=== PATIENT | female | born 1970 | race Caucasian/White ===

== ENCOUNTER 2017-01-10 08:04 | Emergency (ER) | payer OTHER ==
[~2017-01-10] VITALS: Ht 152.4 cm; Wt 104.3 kg
[~2017-01-10 08:04] MED LIST: 'PARAFON FORTE500 M1 PO; BACTRIM DS 8001 TA1 PO; CIPRO500 MG PO; CIPROFLOXACIN500 MG PO; ELIMITE 5%60 GM T; FENOFIBRATE MI134 MG PO; FENOFIBRATE160 MG PO; FLEXERIL10 MG PO; HYDROCODONE BIT1 T11 PO; INVOKAMET1 TAB PO; LISINOPRIL10 MG PO; LORATADINE D 101 T24 PO; LORATADINE D PO; METFORMIN500 MG PO; NAPROSYN500 MG PO; NAPROXEN500 MG PO; PERCOCET 325 MG1 TA6 PO; PREDNICOT20 MG PO; PYRIDIUM200 MG PO; ROBITUSSIN DM 105 ML PO; SEPTRA DS 800 M1 TAB PO; SIMVASTATIN PO; TOBREX OPHTH S2.5 ML OPH; TUSS DM PO; ZITHROMAX Z PA250 MG PO
[2017-01-10 08:12] VITALS: BP 153/79
[2017-01-10] MEDS ORDERED: FISH OIL CONC1000 M1 PO (08:32)
[2017-01-10] MEDS ORDERED: PREDNISONE50 MG PO (09:35)
[2017-01-10] MEDS ORDERED: VENTOLIN H0.09 MG/AC INH (09:36)
== END 2017-01-10 09:12 | disposition home or self-care (01) ==
LOC: ED 08:04
DX: J40 Bronchitis, not specified as acute or chronic (principal); I10 Essential (primary) hypertension

== ENCOUNTER 2017-09-20 09:04 | Emergency (ER) | payer OTHER ==
[~2017-09-20] VITALS: Ht 154.9 cm; Wt 106.1 kg
[~2017-09-20 09:04] MED LIST changes: +FISH OIL CONC1000 M1 PO; +PREDNISONE50 MG PO; +VENTOLIN H0.09 MG/AC INH
[2017-09-20 09:27] VITALS: BP 142/78
[2017-09-20] MEDS ORDERED: ROBITUSSIN DM 105 ML PO (09:35)
[2017-09-20] MEDS ORDERED: FLONASE ALLERG9.9 ML NAS (09:35)
[2017-09-20] MEDS ORDERED: CLARITIN10 MG PO (09:35)
[2017-09-20] MEDS ORDERED: PREDNISONE10 MG PO (09:35)
== END 2017-09-20 10:04 | disposition home or self-care (01) ==
LOC: ED 09:04
DX: J20.9 Acute bronchitis, unspecified (principal); I10 Essential (primary) hypertension; Z98.51 Tubal ligation status; Z79.899 Other long term (current) drug therapy

== ENCOUNTER 2019-10-08 21:18 | Emergency (ER) | payer OTHER ==
[~2019-10-08] VITALS: Ht 154.9 cm; Wt 101.2 kg
[~2019-10-08 21:18] MED LIST changes: +CLARITIN10 MG PO; +FLONASE ALLERG9.9 ML NAS; +PREDNISONE10 MG PO
[2019-10-08 21:26] VITALS: BP 135/69
[2019-10-08] MEDS ORDERED: PREDNISONE20 M1 PO (21:53)
[2019-10-08] MEDS ORDERED: ZITHROMAX250 MG PO (21:53)
== END 2019-10-08 22:29 | disposition home or self-care (01) ==
LOC: ED 21:18
DX: J40 Bronchitis, not specified as acute or chronic (principal); E11.9 Type 2 diabetes mellitus without complications; I10 Essential (primary) hypertension; E78.00 Pure hypercholesterolemia, unspecified; E66.9 Obesity, unspecified; Z79.899 Other long term (current) drug therapy

== ENCOUNTER 2021-02-05 17:38 | Emergency (ER) | payer OTHER ==
[~2021-02-05] VITALS: Ht 152.4 cm; Wt 106.6 kg
[~2021-02-05 17:38] MED LIST changes: +PREDNISONE20 M1 PO; +ZITHROMAX250 MG PO
[2021-02-05 19:29] VITALS: BP 147/77
[2021-02-05] MEDS ORDERED: NAPROSYN500 MG PO (19:38)
== END 2021-02-05 19:40 | disposition home or self-care (01) ==
LOC: ED 17:38
DX: M25.552 Pain in left hip (principal); Z79.899 Other long term (current) drug therapy; Z98.51 Tubal ligation status

== ENCOUNTER 2022-08-29 19:53 | Emergency (ER) | payer OTHER ==
[~2022-08-29] VITALS: Ht 154.9 cm; Wt 99.8 kg
[2022-08-29 20:10] VITALS: BP 152/88
[2022-08-29 21:18] LABS: BASO % 0.4 % (0.0-1.0); EOS # 0.1 10*3/uL (0.0-0.4); EOS % 0.9 % (1.0-4.0); HEMATOCRIT 45.4 % (37.0-47.0); LYMPH # 3.8 10*3/uL (1.3-4.4); LYMPH % 47.2 % (27.0-41.0); MEAN CELL VOLUME 86.6 fl (81.0-99.0); MEAN CORPUSCULAR HGB 29.2 pg (27.0-31.0); MEAN CORPUSCULAR HGB CONC 33.7 g/dl (33.0-37.0); MEAN PLATELET VOLUME 9.6 fl (9.6-12.3); MONO # 0.7 10*3/uL (0.1-1.0); MONO % 8.9 % (3.0-9.0); NEUT # 3.4 10*3/uL (2.3-7.9); NEUT % 42.5 % (47.0-73.0); PLATELET COUNT AUTOMATED 244 10*3/uL (130-400); RED BLOOD COUNT 5.24 10*6/uL (4.10-5.10); RED CELL DISTRI WIDTH 11.8 % (0-14.5)
[2022-08-29 21:35] LABS: ACT PARTIAL THROMBO TIME 25.1 SECONDS (20.0-32.1)
[2022-08-29 21:38] LABS: ALKALINE PHOSPHATASE 89 U/L (46-116); BUN 11 mg/dl (9-23); CHLORIDE 98 mmol/L (98-107); CREATININE 0.63 mg/dL (0.55-1.02); LIPASE 52 U/L (12-53); POTASSIUM 3.6 mmol/L (3.4-5.1); SGPT/ALT 20 U/L (10-49); TOTAL PROTEIN 7.5 gm/dL (6.0-8.0)
== END 2022-08-29 22:53 | disposition left against medical advice (07) ==
LOC: ED 19:53
PROVIDERS: Family Medicine
DX: E87.20 Acidosis, unspecified (principal); E11.9 Type 2 diabetes mellitus without complications; Z98.51 Tubal ligation status

== ENCOUNTER 2022-09-30 17:09 | Emergency (ER) | payer OTHER ==
[~2022-09-30] VITALS: Ht 154.9 cm; Wt 96.6 kg
[2022-09-30 17:21] VITALS: BP 149/68
[2022-09-30] MEDS ORDERED: IBUPROFEN600 MG PO (21:57)
== END 2022-09-30 22:36 | disposition home or self-care (01) ==
LOC: ED 17:09
DX: S82.001A Unspecified fracture of right patella, initial encounter for closed fracture (principal); Z98.51 Tubal ligation status; W10.9XXA Fall (on) (from) unspecified stairs and steps, initial encounter; Y93.89 Activity, other specified; Y92.89 Other specified places as the place of occurrence of the external cause; Y99.8 Other external cause status

== ENCOUNTER 2023-01-04 12:49 | Emergency (ER) | payer OTHER ==
[~2023-01-04] VITALS: Ht 152.4 cm; Wt 97.5 kg
[~2023-01-04 12:49] MED LIST changes: +IBUPROFEN600 MG PO
[2023-01-04 13:03] VITALS: BP 154/71
[2023-01-04] MEDS ORDERED: BENADRYL ALLERG25 M5 PO (13:14)
== END 2023-01-04 13:19 | disposition home or self-care (01) ==
LOC: ED 12:49
DX: B30.9 Viral conjunctivitis, unspecified (principal); E11.9 Type 2 diabetes mellitus without complications; I10 Essential (primary) hypertension; E78.00 Pure hypercholesterolemia, unspecified; Z98.51 Tubal ligation status; Z98.890 Other specified postprocedural states